=== PATIENT | male | born 1960 | race Caucasian/White ===

== ENCOUNTER 2018-07-24 12:51 | Observation (INO) ==
[2018-07-24 13:26] LABS: Baso # (Auto) 0.1 th/mm3 (0.0-0.2); Baso % (Auto) 0.7 % (0.0-2.0); Eos # (Auto) 0.2 th/mm3 (0.0-0.4); Eos % (Auto) 2.3 % (0.0-4.0); Hematocrit 33.6 % (39.0-51.0); Hemoglobin 11.1 gm/dL (13.0-17.0); Lymph # (Auto) 2.8 th/mm3 (1.0-4.8); Lymph % (Auto) 33.6 % (9.0-44.0); Mean Corpuscular HGB Conc 33.1 % (32.0-36.0); Mean Corpuscular Hemoglobin 30.5 pg (27.0-34.0); Mean Corpuscular Volume 91.9 fL (80.0-100.0); Mean Platelet Volume 6.7 fL (7.0-11.0); Mono # (Auto) 0.5 th/mm3 (0.0-0.9); Mono % (Auto) 5.8 % (0.0-8.0); Neut # (Auto) 4.8 th/mm3 (1.8-7.7); Neut % (Auto) 57.6 % (16.0-70.0); Platelet Count 257 th/mm3 (150-450); Red Blood Count 3.66 mil/mm3 (4.50-5.90); Red Cell Distribution Width 14.3 % (11.6-17.2); White Blood Count 8.4 th/mm3 (4.0-11.0)
[2018-07-24 13:39] LABS: Chloride 110 meq/L (98-107); Sodium 140 meq/L (136-145)
[2018-07-24 13:42] LABS: Calcium 9.2 mg/dL (8.5-10.1)
[2018-07-24 13:43] LABS: Anion Gap 8 meq/L (5-15); Blood Urea Nitrogen 37 mg/dL (7-18); Carbon Dioxide 21.7 meq/L (21.0-32.0); Glucose,Random 73 mg/dL (74-106)
[2018-07-24 13:46] LABS: Alanine Aminotransferase 39 U/L (12-78); Aspartate Aminotransferase 34 U/L (15-37); Glomerular Filtration Rate 28 mL/min (>89)
[2018-07-24 13:48] LABS: Total Protein 8.4 g/dL (6.4-8.2)
[2018-07-24] MEDS ORDERED: Sodium Polystyrene Sulfonate/Sorbitol Liq 15 GM/60 ML UDC PO ONE (13:48)
[2018-07-24 13:49] LABS: Alkaline Phosphatase 105 U/L (45-117)
[2018-07-24] MEDS ORDERED: Sodium Chlor 0.9% Inj 500 ML IV.SIG SCH (14:00)
--- NOTE | 2018-07-24 14:12 | ED ---
HPI General Chief complaint: Recheck/Abnormal Lab/Rx Stated complaint: sent by manolo potassium Source: patient Mode of arrival: ambulatory Limitations: no limitations History of Present Illness HPI narrative: Patient is a 57 year old male who comes in due to abnormal blood work. He says he went to his doctor for a routine visit and had blood work drawn Friday. He was told that his potassium was elevated. He had it redrawn on and his potassium remained elevated. He is also having an issue with his kidney function. He denies any symptoms. He denies chest pain, SOB, nausea or vomiting. Related Data Home Medications Medication Instructions Recorded Confirmed Chantix PO BID 07/24/18 Exforge PO EVERY OTHER DAY 07/24/18 Janumet PO BID 07/24/18 Solo 23 units IM HS 07/24/18 07/24/18 glimepiride PO DAILY 07/24/18 methadone 170 mg PO DAILY 07/24/18 07/24/18 Allergies Allergy/AdvReac Type Severity Reaction Status Date / Time No Known Allergies Allergy Verified 07/24/18 12:58 Review of Systems ROS: all other systems reviewed are negative Constitutional Denies chills and Denies fever(s) ENT Denies dizziness Cardiovascular Denies chest pain and Denies dyspnea Respiratory Denies cough and Denies dyspnea Gastrointestinal Denies abdominal pain, Denies nausea and Denies vomiting Musculoskeletal Denies myalgias and Denies arthralgias Integumentary/Breasts Denies rash and Denies sores Neurologic Denies focal weakness and Denies numbness [facility] Medical History Medical History Hx of diabetes insipidus (Acute) Hx of primary hypertension (Acute) Surgical History Surgical History No history of previous surgery (Acute) Social History Social History Substance History: No History of Abuse Second Hand Smoke Exposure: No Smoking Status: Former smoker How Often Do You Have a Drink Containing Alcohol: Never Recent Travel in [facility] within the Last 8 Weeks: No Recent Out of Country Travel within the Last 8 Weeks: No Immunization History Tetanus Immunization: Unsure Hx Influenza Vaccine This Season: No Exam Narrative Exam Narrative: GENERAL: Awake and alert, in no acute abnormalities. SKIN: Focused skin assessment warm/dry. HEAD: Atraumatic. Normocephalic. EYES: Pupils equal and round. No scleral icterus. ENT: Mucous membranes pink and moist. NECK: Trachea midline. No JVD. CARDIOVASCULAR: Regular rate and rhythm. No murmur appreciated. RESPIRATORY: No accessory muscle use. Clear to auscultation. Breath sounds equal bilaterally. GASTROINTESTINAL: Abdomen soft, non-tender, nondistended. MUSCULOSKELETAL: No obvious deformities. No clubbing. No cyanosis. No edema. NEUROLOGICAL: Awake and alert. No obvious cranial nerve deficits. Motor grossly within normal limits. Normal speech. PSYCHIATRIC: Appropriate mood and affect; insight and judgment normal. Course Initial Documented Vital Signs Temperature 98.6 F 07/24/18 12:58 Pulse Rate 52 L 07/24/18 12:58 Respiratory Rate 18 07/24/18 12:58 Blood Pressure 145/67 H 07/24/18 12:58 Pulse Oximetry 99 07/24/18 12:58 Last Documented Vital Signs Temperature 98.6 F 07/24/18 12:58 Pulse Rate 52 L 07/24/18 13:21 Respiratory Rate 16 07/24/18 13:21 Blood Pressure 161/74 H 07/24/18 13:21 Pulse Oximetry 99 07/24/18 13:21 Medical Decision Making [facility] Narrative Medical decision making narrative: Patient is a 57-year-old male who comes in due to abnormal lab. IV established, labs sent. Labs concerning for worsening kidney function with a creatinine of 2.40. It was 1.72 on . Potassium is 6. ECG shows sinus bradycardia, normal intervals. Patient given IV fluids and Kayexalate. Admitted for further management. Medical Screen Exam Complete: Yes Emergency Medical Condition: Yes Differential Diagnosis Differential Diagnosis: Renal failure versus kidney injury versus hyperkalemia versus dehydration Medical Records Medical records reviewed: Yes I reviewed the patient's medical records. Lab Data Lab results reviewed: Yes I reviewed the patient's lab results. Result diagrams: 07/24/18 13:15 07/24/18 13:15 Lab Results 07/24/18 07/24/18 Range/Units 13:15 13:15 CBC w Diff Auto diff final WBC 8.4 (4.0-11.0) th/mm3 RBC 3.66 L (4.50-5.90) mil/mm3 Hgb 11.1 L (13.0-17.0) gm/dL Hct 33.6 L (39.0-51.0) % MCV 91.9 (80.0-100.0) fL MCH 30.5 (27.0-34.0) pg MCHC 33.1 (32.0-36.0) % RDW 14.3 (11.6-17.2) % Plt Count 257 (150-450) th/mm3 MPV 6.7 L (7.0-11.0) fL Neut % (Auto) 57.6 (16.0-70.0) % Lymph % (Auto) 33.6 (9.0-44.0) % [place] % (Auto) 5.8 (0.0-8.0) % Eos % (Auto) 2.3 (0.0-4.0) % Baso % (Auto) 0.7 (0.0-2.0) % Neut # (Auto) 4.8 (1.8-7.7) th/mm3 Lymph # (Auto) 2.8 (1.0-4.8) th/mm3 [place] # (Auto) 0.5 (0.0-0.9) th/mm3 Eos # (Auto) 0.2 (0.0-0.4) th/mm3 Baso # (Auto) 0.1 (0.0-0.2) th/mm3 WBC Differential . Differential Comment . Sodium 140 (136-145) meq/L Potassium 6.0 H (3.5-5.1) meq/L Chloride 110 H (98-107) meq/L Carbon Dioxide 21.7 (21.0-32.0) meq/L Anion Gap 8 (5-15) meq/L BUN 37 H (7-18) mg/dL Creatinine 2.40 H (0.60-1.30) mg/dL Estimated GFR 28 L (>89) mL/min Random Glucose 73 L (74-106) mg/dL Calcium 9.2 (8.5-10.1) mg/dL Total Bilirubin 0.2 (0.2-1.0) mg/dL AST 34 (15-37) U/L ALT 39 (12-78) U/L Alkaline Phosphatase 105 (45-117) U/L Total Protein 8.4 H (6.4-8.2) g/dL Albumin 4.0 (3.4-5.0) g/dL ECG Data EKG Prior to Arrival: No Attestation: I personally reviewed and interpreted this ECG as follows: Interpretation: ECG shows sinus bradycardia at a rate of 48, no ST elevation or depression, normal intervals Discharge Plan Discharge Disposition Patient Disposition: 30 Still Patient Discharge Condition Condition: Stable Discharge Details Diagnosis: Acute hyperkalemia, SALVATORE (acute kidney injury) Physicians Team ED Provider: Arlene Sabillon Primary Care Provider: Sebastien Trevino JR Rxs /Orders / Referrals /Forms Prescriptions: No Action Chantix PO BID RF: 0 Exforge PO EVERY OTHER DAY RF: 0 Janumet PO BID RF: 0 Solo 23 units IM HS RF: 0 glimepiride PO DAILY RF: 0 methadone 170 mg PO DAILY RF: 0 Discharge Interventions Interventions: Vital Signs Last Done: 07/24/18 13:21 Status ED Status: In Room
[2018-07-24] MEDS ORDERED: Acetaminophen 325 MG Tablet PO PRN (16:01)
[2018-07-24] MEDS ORDERED: Bisacodyl 10 MG Supp RECTAL PRN (16:01)
[2018-07-24] MEDS ORDERED: Temazepam 15 MG Capsule PO PRN (16:01)
[2018-07-24] MEDS ORDERED: Dextrose 50% in Water 50 ML Vial IV.PUSH PRN (16:03)
--- NOTE | 2018-07-24 16:12 | P.HP ---
History of Present Illness Primary Care Physician: Sebastien Trevino JR, DO Chief Complaint: Patient sent here by primary medical doctor because of abnormal laboratory History of Present Illness: 57-year-old male with known history of hypertension, diabetes, chronic kidney disease, chronic opiate dependency who presented to the hospital the request of his prior medical doctor because of abnormal labs. Patient states that he follows with his primary medical doctor every 6 months and gets laboratory studies performed and they noticed approximately 6 months ago that he is started developing worsening of his kidney function due to his diabetes. Then he started doing follow-up studies every 2 months and can function continue to get worse. And then 2 weeks ago he had blood work done and has significant worsening of his kidney functions with elevated potassium. The patient had a repeat laboratory studies done and it remained persistent so the primary medical doctor recommended that the patient come to the hospital for evaluation. Patient had workup done and found to have creatinine of 2.4 with potassium 6.0. Because of those reasons it was recommended that the patient should be observed in the hospital for continued care and management. Patient denies any abdominal pain, flank pain, dysuria, decreased urine production. - Diagnosis (1) Acute renal failure superimposed on chronic kidney disease (2) Acute hyperkalemia Review of Systems All other systems reviewed negative except as stated in HPI PMFSH - History History Provided By: Patient - Medical History Medical History: Medical History (Last Updated 07/24/18 @ 16:08 by ANGEL Holguin) Hx of diabetes insipidus Hx of primary hypertension Opiate dependence - Surgical History Surgical History: Surgical History (Last Reviewed 07/24/18 @ 14:27 by Arlene Sabillon MD) No history of previous surgery - Family History Family History: Family History (Last Updated 07/24/18 @ 16:08 by ANGEL Holguin) Mother History of heart disease - Tobacco History Second Hand Smoke Exposure: No Tobacco Use In Past 30 Days: Yes (1/2PPD) Smoking Status: Former smoker Number of Pack Years (if former smoker): 21 - Alcohol History How Often Do You Have a Drink Containing Alcohol: Never - Substance Use History Substance History: No History of Abuse - Travel History Recent Travel in the [place] Within the Last 8 Weeks: No Recent Travel Out of the Country Within the Last 8 Weeks: No - Immunization History Tetanus Immunization: Unsure Hx Influenza Vaccine This Season: No Medications and Allergies Active Medications: Active Medications Sodium Chloride (Ns Inj) 500 mls @ 0 mls/hr IV.SIG BOLUS GENE Last Infusion: 07/24/18 14:30 Dose: Infused Allergies Allergy/AdvReac Type Severity Reaction Status Date / Time No Known Allergies Allergy Verified 07/24/18 12:58 Home Medications Medication Instructions Recorded Confirmed Type amlodipine-valsartan [Exforge] 1 tab PO DAILY 07/25/18 07/25/18 History glimepiride 4 mg PO QAM 07/25/18 07/25/18 History insulin glargine [Lantus Solostar 23 unit SUB-Q HS 07/25/18 07/25/18 History U-100 Insulin] methadone [Dolophine] 170 mg PO DAILY 07/25/18 07/25/18 History sitagliptin-metformin [Janumet] 1 dose PO BID 07/25/18 07/25/18 History varenicline [Chantix Continuing 1 mg PO BID 07/25/18 07/25/18 History Month Box] Exam Vital signs: Vital Signs 07/24/18 12:58 07/24/18 13:21 07/24/18 14:33 Temperature 98.6 F Pulse Rate 52 L 52 L 53 L Respiratory Rate 18 16 16 Blood Pressure 145/67 H 161/74 H 131/76 Pulse Oximetry 99 99 96 Intake & Output 07/23/18 07/24/18 07/24/18 18:59 06:59 18:59 Intake Total 500 / 500 Balance 500 / 500 Weight 81.7 kg Intake: IV 500 / 500 NS Inj 500 ML @ Wide Open IV. 500 / 500 SIG BOLUS GENE Rx#:[id number] Narrative: GENERAL: Well-developed, well-nourished, in no acute distress. alert and orientated HEENT: Head is normocephalic without any lesions or masses noted. Facial features are symmetric. Eyes: Pupils equal round reactive to light. Extraocular muscles are intact. Conjunctivae were clear. Oropharyngeal: Pharynx without any erythema edema. Tongue is midline without deviation. Buccal mucosa is moist without any masses or lesions NECK: Supple without any masses. Trachea midline no deviation. No JVD, no bruits are appreciated CARDIAC: Regular rhythm, regular rate. S1/S2 are heard. No murmurs gallops or rubs. LUNGS: Clear to auscultation bilaterally. No wheeze, rhonchi or rales. No use of accessory muscles on inspiration or expiration. ABDOMEN: Soft, nontender. Nondistended. Bowel sounds heard in all 4 quadrants. No organomegaly or masses. Negative rebound, negative guarding EXTREMITIES: No edema, pulses are equal bilaterally. No cyanosis or clubbing NEUROLOGY: Mood and affect appear appropriate. Cranial nerves II through XII grossly intact. Muscle strength 5/5 in upper and lower extremities bilaterally. Deep tendon reflexes are 2+ in upper and lower extremities bilaterally. Results - Labs CBC & Chem 7: 07/24/18 13:15 07/25/18 06:40 Labs: Laboratory Results - last 24 hr 07/24/18 07/24/18 13:15 13:15 CBC w Diff Auto diff final WBC 8.4 RBC 3.66 L Hgb 11.1 L Hct 33.6 L MCV 91.9 MCH 30.5 MCHC 33.1 RDW 14.3 Plt Count 257 MPV 6.7 L Neut % (Auto) 57.6 Lymph % (Auto) 33.6 [place] % (Auto) 5.8 Eos % (Auto) 2.3 Baso % (Auto) 0.7 Neut # (Auto) 4.8 Lymph # (Auto) 2.8 [place] # (Auto) 0.5 Eos # (Auto) 0.2 Baso # (Auto) 0.1 WBC Differential . Differential Comment . Sodium 140 Potassium 6.0 H Chloride 110 H Carbon Dioxide 21.7 Anion Gap 8 BUN 37 H Creatinine 2.40 H Estimated GFR 28 L Random Glucose 73 L Calcium 9.2 Total Bilirubin 0.2 AST 34 ALT 39 Alkaline Phosphatase 105 Total Protein 8.4 H Albumin 4.0 Caprini VTE Risk Assessment Caprini VTE Risk Assessment: No/Low Risk (score <= 1) Caprini Risk Assessment Model: Point Value = 1 Point Value = 2 Point Value = 3 Point Value = 5 Age 41-60 Minor surgery BMI > 25 kg/m2 Swollen legs Varicose veins or History of unexplained or recurrent spontaneous Oral contraceptives or hormone replacement Sepsis (< 1 month) Serious lung disease, including pneumonia (< 1 month) Abnormal pulmonary function Acute myocardial infarction Congestive heart failure (< 1 month) History of inflammatory bowel disease Medical patient at bed rest Age 61-74 Arthroscopic surgery Major open surgery (> 45 min) Laparoscopic surgery (> 45 min) Malignancy Confined to bed (> 72 hours) Immobilizing plaster cast Central venous access Age >= 75 History of VTE Family history of VTE Factor V Leiden Prothrombin [id number] Lupus anticoagulant Anticardiolipin antibodies Elevated serum homocysteine Heparin-induced thrombocytopenia Other congenital or acquired thrombophilia Stroke (< 1 month) Elective arthroplasty Hip, pelvis, or leg fracture Acute spinal cord injury (< 1 month) Prophylaxis Regimen: Total Risk Factor Score Risk Level Prophylaxis Regimen 0-1 Low Early ambulation 2 Moderate Order ONE of the following: *Sequential Compression Device (SCD) *Heparin 5000 units SQ BID 3-4 Higher Order ONE of the following medications: *Heparin 5000 units SQ TID *Enoxaparin/Lovenox 40 mg SQ daily (WT < 150 kg, CrCl > 30 mL/min) *Enoxaparin/Lovenox 30 mg SQ daily (WT < 150 kg, CrCl > 10-29 mL/min) *Enoxaparin/Lovenox 30 mg SQ BID (WT < 150 kg, CrCl > 30 mL/min) AND/OR *Sequential Compression Device (SCD) 5 or more Highest Order ONE of the following medications: *Heparin 5000 units SQ TID (Preferred with Epidurals) *Enoxaparin/Lovenox 40 mg SQ daily (WT < 150 kg, CrCl > 30 mL/min) *Enoxaparin/Lovenox 30 mg SQ daily (WT < 150 kg, CrCl > 10-29 mL/min) *Enoxaparin/Lovenox 30 mg SQ BID (WT < 150 kg, CrCl > 30 mL/min) AND *Sequential Compression Device (SCD) Assessment and Plan - Assessment (1) Acute renal failure superimposed on chronic kidney disease Code(s): N17.9 - Acute kidney failure, unspecified; N18.9 - Chronic kidney disease, unspecified Status: Acute (2) Acute hyperkalemia Code(s): E87.5 - Hyperkalemia Status: Acute - Plan Acute renal failure superimposed on chronic kidney disease with associated hyperkalemia -Multifactorial with patient having etiologies such as hypertension, diabetes, medication side effects to include ARB, HCTZ, metformin use -We will start IV fluids at 100 cc an hour -Monitor renal function -We will hold ARB, HCTZ, metformin -Status post Kayexalate in the emergency department -Obtain renal bladder ultrasound -Consult trimming cutter machine for further recommendations Diabetes -Accu-Cheks with sliding scale insulin -Diabetic diet Hypertension -Norvasc 10 mg daily Opiate dependency -Patient states he does go to the [facility] -E force evaluation did not indicate patient is on any medications -We will need to contact methadone clinic for resumption of his medications DVT prevention -Sequential compression devices
[2018-07-24] MEDS: Sod Chloride 0.9% Inj 1,000 ML IV.CONT SCH (16:25)
[2018-07-24] MEDS: Insulin NovoLOG Aspart Correctional Sugar Inj SQ SCH ×2 (17:43→21:31)
--- NOTE | 2018-07-24 20:42 | US ---
EXAM DATE: 07/24/2018 8:01 PM EDT AGE/SEX: 57 years / Male INDICATIONS: Increased BUN and Creatinine. CLINICAL DATA: This is the patient's initial encounter. Patient reports that signs and symptoms have been present for 1 day and indicates a pain score of 0/10. MEDICAL/SURGICAL HISTORY: Diabetes. Hypertension. Opiate dependence. None. COMPARISON: No prior exams available for comparison. MEASUREMENTS: Right Kidney:__10.2 x 4.8 x 6.1 cm Left Kidney:__8.0 x 4.1 x 5.0 cm FINDINGS: Right Kidney: Normal echotexture and cortical thickness. No mass or hydronephrosis. Left Kidney: The left kidney is small in size compared to the right. No mass or hydronephrosis. Bladder: Within normal limits given the degree of distension. Other: None. CONCLUSION: 1. Small left kidney compared to the right. 2. No solid renal mass or hydronephrosis. Electronically signed by: Aristides Villalba MD 07/24/2018 8:40 PM EDT
[2018-07-24] MEDS: Senna/Docusate Sodium 8.6/50 MG Tablet PO SCH (21:28)
[2018-07-25] MEDS: Sod Chloride 0.9% Inj 1,000 ML IV.CONT SCH ×2 (03:00→11:37)
[2018-07-25 07:41] LABS: Calcium 8.2 mg/dL (8.5-10.1); Carbon Dioxide 22.5 meq/L (21.0-32.0); Potassium 4.9 meq/L (3.5-5.1)
[2018-07-25] MEDS: Insulin NovoLOG Aspart Correctional Sugar Inj SQ SCH ×3 (07:42→16:50)
[2018-07-25] MEDS: Senna/Docusate Sodium 8.6/50 MG Tablet PO SCH (08:55)
[2018-07-25] MEDS ORDERED: amLODIPine 10 MG Tablet PO SCH (09:00)
--- NOTE | 2018-07-25 12:14 | P.PN ---
Subjective Interval history: 57-year-old male who is seen and examined today for follow-up on acute renal failure. Patient denies any new complaints. Patient remains asymptomatic. Discussed laboratory results with the patient and family at bedside. Vital signs are stable, patient remains afebrile. Physical Exam Vital signs: Vital Signs 07/24/18 12:58 07/24/18 13:21 07/24/18 14:33 Temperature 98.6 F Pulse Rate 52 L 52 L 53 L Respiratory Rate 18 16 16 Blood Pressure 145/67 H 161/74 H 131/76 Pulse Oximetry 99 99 96 07/24/18 16:00 07/24/18 20:00 07/25/18 00:00 Temperature 97.1 F L 97.4 F L 96.3 F L Pulse Rate 48 L 47 L 43 L Respiratory Rate 18 20 20 Blood Pressure 146/73 H 136/74 137/83 Pulse Oximetry 99 99 99 07/25/18 08:00 Temperature 98.1 F Pulse Rate 52 L Respiratory Rate 17 Blood Pressure 167/77 H Pulse Oximetry 99 Intake & Output 07/24/18 07/25/18 07/25/18 18:59 06:59 18:59 Intake Total 500 / 500 1060 / 1060 1000 / 1000 Balance 500 / 500 1060 / 1060 1000 / 1000 Weight 81.7 kg 81.7 kg Intake: IV 500 / 500 1000 / 1000 1000 / 1000 NS Inj 1,000 ML @ 100 mls/hr IV 1000 / 1000 1000 / 1000 .CONT .Q10H GENE Rx#:[id number] NS Inj 500 ML @ Wide Open IV. 500 / 500 SIG BOLUS GENE Rx#:[id number] Oral 60 / 60 Other: # Voids 3 Date of Last Bowel Movement 07/24/18 Narrative: GENERAL: Well-developed, well-nourished, in no acute distress. alert and orientated HEENT: Head is normocephalic without any lesions or masses noted. Facial features are symmetric. Eyes: Extraocular muscles are intact. Conjunctivae were clear. NECK: Supple without any masses. Trachea midline no deviation. No JVD, CARDIAC: Regular rhythm, regular rate. S1/S2 are heard. No murmurs gallops or rubs. LUNGS: Clear to auscultation bilaterally. No wheeze, rhonchi or rales. No use of accessory muscles on inspiration or expiration. ABDOMEN: Soft, nontender. Nondistended. Bowel sounds heard in all 4 quadrants. No organomegaly or masses. Negative rebound, negative guarding EXTREMITIES: No edema, pulses are equal bilaterally. No cyanosis or clubbing NEUROLOGY: Mood and affect appear appropriate. Cranial nerves II through XII grossly intact. Moving all extremities, speech is clear Results - Labs CBC & Chem 7: 07/24/18 13:15 07/25/18 06:40 Laboratory Results - last 24 hr 07/24/18 07/24/18 07/24/18 13:15 13:15 17:42 CBC w Diff Auto diff final WBC 8.4 RBC 3.66 L Hgb 11.1 L Hct 33.6 L MCV 91.9 MCH 30.5 MCHC 33.1 RDW 14.3 Plt Count 257 MPV 6.7 L Neut % (Auto) 57.6 Lymph % (Auto) 33.6 [place] % (Auto) 5.8 Eos % (Auto) 2.3 Baso % (Auto) 0.7 Neut # (Auto) 4.8 Lymph # (Auto) 2.8 [place] # (Auto) 0.5 Eos # (Auto) 0.2 Baso # (Auto) 0.1 WBC Differential . Differential Comment . Sodium 140 Potassium 6.0 H Chloride 110 H Carbon Dioxide 21.7 Anion Gap 8 BUN 37 H Creatinine 2.40 H Estimated GFR 28 L POC Glucose 85 Random Glucose 73 L Calcium 9.2 Total Bilirubin 0.2 AST 34 ALT 39 Alkaline Phosphatase 105 Total Protein 8.4 H Albumin 4.0 07/24/18 07/25/18 07/25/18 21:30 06:40 07:37 CBC w Diff WBC RBC Hgb Hct MCV MCH MCHC RDW Plt Count MPV Neut % (Auto) Lymph % (Auto) [place] % (Auto) Eos % (Auto) Baso % (Auto) Neut # (Auto) Lymph # (Auto) [place] # (Auto) Eos # (Auto) Baso # (Auto) WBC Differential Differential Comment Sodium 143 Potassium 4.9 D Chloride 114 H Carbon Dioxide 22.5 Anion Gap 7 BUN 28 H Creatinine 1.70 H Estimated GFR 42 L POC Glucose 112 H 62 L Random Glucose 51 L Calcium 8.2 L D Total Bilirubin AST ALT Alkaline Phosphatase Total Protein Albumin 07/25/18 11:36 CBC w Diff WBC RBC Hgb Hct MCV MCH MCHC RDW Plt Count MPV Neut % (Auto) Lymph % (Auto) [place] % (Auto) Eos % (Auto) Baso % (Auto) Neut # (Auto) Lymph # (Auto) [place] # (Auto) Eos # (Auto) Baso # (Auto) WBC Differential Differential Comment Sodium Potassium Chloride Carbon Dioxide Anion Gap BUN Creatinine Estimated GFR POC Glucose 252 H Random Glucose Calcium Total Bilirubin AST ALT Alkaline Phosphatase Total Protein Albumin - Imaging Impressions Abdomen/Bladder Ultrasound 07/24/18 16:03 CONCLUSION: 1. Small left kidney compared to the right. 2. No solid renal mass or hydronephrosis. Assessment and Plan - Assessment (1) Acute renal failure superimposed on chronic kidney disease Code(s): N17.9 - Acute kidney failure, unspecified; N18.9 - Chronic kidney disease, unspecified Status: Acute (2) Acute hyperkalemia Code(s): E87.5 - Hyperkalemia Status: Acute - Plan Acute renal failure superimposed on chronic kidney disease with associated hyperkalemia, resolved -Multifactorial with patient having etiologies such as hypertension, diabetes, medication side effects to include ARB, HCTZ, metformin use -Discontinue IV fluids -Monitor renal function -Continue to hold ARB, HCTZ, metformin -Status post Kayexalate in the emergency department -Renal bladder ultrasound indicate small left kidney compared to the right, -Consulted brick shader for further recommendations Diabetes -Accu-Cheks with sliding scale insulin -Diabetic diet Hypertension -Norvasc 10 mg daily Opiate dependency -Patient states he does go to the [facility] -E force evaluation did not indicate patient is on any medications -Awaiting verification from [facility] DVT prevention -Sequential compression devices Discharge Planning: Discharge home in stable condition Activity: Ad gaby. Diet: Diabetic diet Medication per medication reconciliation Follow-up with primary medical doctor in 1 week
[2018-07-25 17:01] VITALS: BP 160/70; PULSE 48; RESP 16; TEMP 98.2; O2SAT 98
--- NOTE | 2018-07-25 18:45 | P.CONNP ---
History of Present Illness Service: Nephrology Consult date: 07/25/18 Requesting Physician: Clemente Raphael Reason for Consult: Acute and chronic kidney disease Primary Care Provider: Sebastien Trevino JR, DO Chief Complaint: Patient sent here by primary medical doctor because of abnormal laboratory History of Present Illness: Patient is a 57-year-old white male with history of diabetes for 4 years, hypertension, he stated that he was sent to the hospital by his physician as his lab work was abnormal, noted to have elevated creatinine 2.4 with hydration declining to 1.7, of note patient has been taking ARB in combination with ibuprofen, he states that he takes ibuprofen due to work related to pain in his legs and that usually helps him, he has been taking this for a long time. Ultrasound showed an atrophic left kidney, patient creatinine did decline with hydration to 1.7, it is unknown what his baseline is, he denies prostate problems, kidney stone, dysuria. Review of Systems Constitutional: Denies anorexia, Denies body ache(s), Denies chills, Denies daytime sleepiness, Denies excessive sweating, Denies fatigue, Denies fever(s), Denies headache(s), Denies increased appetite, Denies lack of energy, Denies malaise, Denies night sweats, Denies weakness, Denies weight gain, Denies weight loss, Denies other Eyes: Denies blind spots, Denies blurry vision, Denies bulging eyes, Denies change in vision, Denies double vision, Denies discharge, Denies dry eyes, Denies floaters, Denies irritation, Denies itchy eyes, Denies loss of vision, Denies pain, Denies requires corrective lenses, Denies sensitivity to light, Denies other Ears, Nose, Mouth, and Throat: Denies abnormal hearing, Denies bleeding gums, Denies bad breath, Denies change in voice, Denies dental pain, Denies difficulty swallowing, Denies dizziness, Denies dry mouth, Denies ear discharge , Denies ear pain, Denies facial pain, Denies headache(s), Denies hearing loss, Denies hoarseness, Denies lip swelling, Denies nosebleed, Denies mouth lesions, Denies mouth pain, Denies nasal congestion, Denies nasal discharge, Denies nasal obstruction, Denies nasal trauma, Denies neck lump, Denies neck pain, Denies nose pain, Denies pain with swallowing, Denies poor balance, Denies post nasal drip, Denies ringing in the ears, Denies sinus pain, Denies sinus pressure , Denies sore throat, Denies throat swelling, Denies tongue swelling, Denies other Cardiovascular: Denies chest pain, Denies chest pain at rest, Denies chest pain with activity, Denies excessive sweating, Denies fainting, Denies fast heart rate, Denies foot swelling, Denies generalized swelling, Denies irregular heart rhythm, Denies leg pain with activity, Denies leg sores, Denies leg swelling, Denies lightheadedness, Denies radiating jaw, neck or arm pain, Denies rapid, pounding, or irregular heartbeat, Denies shortness of breath, Denies shortness of breath with activity, Denies shortness of breath when lying down, Denies shortness of breath causing sudden awakening, Denies slow heart rate, Denies other Respiratory: Denies change in phlegm color, Denies chest congestion, Denies cough, Denies coughing up blood, Denies excessive phlegm production, Denies pain on inspiration, Denies pain with cough, Denies shortness of breath, Denies shortness of breath with activity, Denies snoring, Denies stridor, Denies wheezing, Denies other Gastrointestinal: Denies abdominal pain, Denies belching, Denies black, tarry stools, Denies bloating, Denies bright, red blood in stools, Denies change in bowel habits, Denies constant urge to pass stool, Denies change in stools, Denies coffee ground vomit, Denies constipation, Denies cramping, Denies difficulty swallowing, Denies excessive passing of gas, Denies feeling full early, Denies heartburn, Denies incontinent of stools, Denies loose stools, Denies nausea, Denies pain with swallowing, Denies vomiting, Denies vomiting blood, Denies other Genitourinary: Denies blood in semen, Denies blood in urine, Denies decreased urination, Denies difficulty urinating, Denies difficulty with ejaculations, Denies erectile dysfunction, Denies genital lesions, Denies genital pain, Denies painful urination, Denies side pain, Denies frequent nighttime urination , Denies painful ejaculations, Denies penile discharge, Denies scrotal swelling , Denies testicle lump, Denies testicle pain, Denies urinary frequency, Denies urinary hesitancy, Denies urinary incontinence, Denies urinary urgency, Denies other Musculoskeletal: Reports radiating pain into limb Skin/Breast: Denies acne, Denies bleeding lesions, Denies boil, Denies breast swelling, Denies breast skin changes, Denies breast pain, Denies breast lump, Denies change in breast shape, Denies change in hair, Denies change in skin color, Denies changing lesions, Denies dry skin, Denies excessive hair growth, Denies hair loss, Denies itching, Denies lesions, Denies nail changes, Denies new lesions, Denies nipple discharge, Denies non-healing lesions, Denies redness , Denies sensitivity to light, Denies rash, Denies skin pain, Denies skin ulcer , Denies sores, Denies stretch wing, Denies unusual bruising, Denies wounds, Denies yellowing of the skin, Denies other Neurologic: Denies abnormal hearing, Denies abnormal movements, Denies abnormal speech, Denies abnormal walking, Denies behavioral changes, Denies burning sensations, Denies confusion, Denies dizziness, Denies fainting, Denies frequent falls, Denies headache(s), Denies lack of coordination, Denies localized weakness, Denies loss of vision, Denies memory loss, Denies numbness, Denies other visual disturbances, Denies radiating pain, Denies restless legs, Denies convulsions, Denies seizure-like activity, Denies sensory deficit, Denies tingling, Denies tingling/numbness/burning sensations, Denies tremor(s), Denies unsteadiness, Denies weakness, Denies other Hematologic/Lymphatic: Denies easy bleeding, Denies easy bruising, Denies enlarged lymph nodes, Denies other Allergic/Immunologic: Denies GI upset with certain foods, Denies hives, Denies itchy eyes, Denies lip swelling, Denies seasonal runny nose, Denies throat swelling, Denies tongue swelling, Denies wheezing, Denies other PMFSH - History History Provided By: Patient - Medical History Medical History: Medical History (Last Updated 07/25/18 @ 11:50 by ANGEL Holguin) Diabetes Hx of primary hypertension Opiate dependence - Surgical History Surgical History: Surgical History (Last Reviewed 07/24/18 @ 14:27 by Arlene Sabillon MD) No history of previous surgery - Family History Family History: Family History (Last Updated 07/24/18 @ 16:08 by ANGEL Holguin) Mother History of heart disease - Tobacco History Second Hand Smoke Exposure: No Tobacco Use In Past 30 Days: Yes (1/2PPD) Smoking Status: Former smoker Tobacco Type: Cigarettes Number of Pack Years (if former smoker): 21 - Alcohol History How Often Do You Have a Drink Containing Alcohol: Never - Substance Use History Substance History: No History of Abuse - Travel History Recent Travel in the [place] Within the Last 8 Weeks: No Recent Travel Out of the Country Within the Last 8 Weeks: No - Immunization History Tetanus Immunization: Unsure Hx Influenza Vaccine This Season: No Medications and Allergies Active Medications: Active Medications Acetaminophen (Tylenol) 650 mg PO Q4H PRN PRN Reason: Temp > 100.4 Al Hydroxide/Mg Hydroxide (Milk Of Magnesia Liq) 30 ml PO Q12H PRN PRN Reason: Mild Constipation Amlodipine Besylate (Norvasc) 10 mg PO DAILY GENE Last Admin: 07/25/18 08:55 Dose: 10 mg Bisacodyl (Dulcolax Supp) 10 mg RECTAL DAILY PRN PRN Reason: SEVERE CONSITIPATION Dextrose (D50w Vial) 50 ml IV.PUSH UNSCH PRN PRN Reason: PER HYPOGLYCEMIA PROTOCOL Glucagon (Glucagon Inj) 1 mg OTHER PRN PRN PRN Reason: for Hypoglycemia Protocol Sodium Chloride (Ns Inj) 500 mls @ 0 mls/hr IV.SIG BOLUS GENE Last Infusion: 07/24/18 14:30 Dose: Infused Sodium Chloride (Ns Inj) 1,000 mls @ 100 mls/hr IV.CONT .Q10H GENE Last Admin: 07/25/18 11:37 Dose: 100 mls/hr Insulin Aspart (Novolog Insulin Correctional Sugar Inj) 0 unit SQ ACHS GENE; Protocol Last Admin: 07/25/18 16:50 Dose: 3 unit Lactulose (Lactulose Liq) 30 ml PO DAILY PRN PRN Reason: SEVERE CONSITIPATION Ondansetron HCl (Zofran Inj) 4 mg IV.PUSH Q6H PRN PRN Reason: NAUSEA OR VOMITING Senna/Docusate Sodium (Lashawn-Colace) 1 tab PO BID [facility] Last Admin: 07/25/18 08:55 Dose: Not Given Sennosides (Senokot) 17.2 mg PO Q12H PRN PRN Reason: Moderate Constipation Temazepam (Restoril) 15 mg PO HS PRN PRN Reason: INSOMNIA Allergies Allergy/AdvReac Type Severity Reaction Status Date / Time No Known Allergies Allergy Verified 07/24/18 12:58 Home Medications Medication Instructions Recorded Confirmed Type amlodipine-valsartan [Exforge] 1 tab PO DAILY 07/25/18 07/25/18 History glimepiride 4 mg PO QAM 07/25/18 07/25/18 History insulin glargine [Lantus Solostar 23 unit SUB-Q HS 07/25/18 07/25/18 History U-100 Insulin] methadone [Dolophine] 170 mg PO DAILY 07/25/18 07/25/18 History sitagliptin-metformin [Janumet] 1 dose PO BID 07/25/18 07/25/18 History varenicline [Chantix Continuing 1 mg PO BID 07/25/18 07/25/18 History Month Box] Exam Vital signs: Vital Signs 07/24/18 20:00 07/25/18 00:00 07/25/18 08:00 Temperature 97.4 F L 96.3 F L 98.1 F Pulse Rate 47 L 43 L 52 L Respiratory Rate 20 20 17 Blood Pressure 136/74 137/83 167/77 H Pulse Oximetry 99 99 99 07/25/18 12:00 07/25/18 16:00 Temperature 98.4 F 98.2 F Pulse Rate 50 L 48 L Respiratory Rate 17 16 Blood Pressure 153/75 H 160/70 H Pulse Oximetry 99 98 Intake & Output 07/24/18 07/25/18 07/25/18 18:59 06:59 18:59 Intake Total 500 / 500 1060 / 1060 1959 Balance 500 / 500 1060 / 1060 1959 Weight 81.7 kg 81.7 kg Intake: IV 500 / 500 1000 / 1000 1000 / 1000 NS Inj 1,000 ML @ 100 mls/hr IV 1000 / 1000 1000 / 1000 .CONT .Q10H [facility] Rx#:[id number] NS Inj 500 ML @ Wide Open IV. 500 / 500 SIG BOLUS GENE Rx#:[id number] Oral 60 / 60 960 / 960 Other: # Voids 3 5 Date of Last Bowel Movement 07/24/18 # Bowel Movements 0 - Constitutional no acute distress - Routine HEENT Exam Head: Present: normocephalic, atraumatic Eye: Present: EOMI, PERRL - Routine Neck Exam Present: supple, full ROM - Routine Respiratory Exam Present: CTA bilaterally - Routine Cardiovascular Exam Present: RRR - Routine Abdominal Exam Present: soft, normoactive bowel sounds - Routine Extremities Exam Present: pulses intact - Routine Skin Exam Present: intact - Routine Neurological Exam Present: alert, oriented X3 Results - Lab Results 07/24/18 13:15 07/25/18 06:40 Most recent lab results Calcium 8.2 mg/dL (8.5-10.1) L D 07/25/18 06:40 Assessment and Plan - Assessment (1) Acute renal failure superimposed on chronic kidney disease Code(s): N17.9 - Acute kidney failure, unspecified; N18.9 - Chronic kidney disease, unspecified Status: Acute (2) Diabetes Code(s): E11.9 - Type 2 diabetes mellitus without complications Status: Acute - Plan I discussed with her that most likely etiology of left atrophic kidney is use of nonsteroidal anti-inflammatory drugs in combination with angiotensin receptor blockers, they have known to cause decreased blood flow to the kidney and that can lead to chronic kidney injury and atrophy, patient was advised to change the combination of medication hydrate himself well Continue to monitor intake and output He will avoid nephrotoxins This can be monitored as outpatient as renal function did improve and hyperkalemia resolved with stopping medications. I told him to follow-up in the office in 2 weeks
--- NOTE | 2018-07-26 12:28 | ECG ---
Date Performed: 07/24/2018 Time Performed: 13:53:14 PTAGE: 57 years EKG: SINUS BRADYCARDIA BORDERLINE ECG PREVIOUS TRACING : 08/08/2010 06.47 Since the previous tracing, no significant change noted DOCTOR: Bolivar Alcala Interpretating Date/Time 07/26/2018 12:27:30
== END 2018-07-25 19:21 | disposition home or self-care (01) ==
LOC: PHED 12:51 → PH3 12:51 → PHED 15:12
PROVIDERS: ADMIT Hospitalist; ATTEND Hospitalist